=== PATIENT | male | born 1990 | race Two or more races ===

== ENCOUNTER 2022-01-04 15:55 | Emergency (ER) | payer SELFPAY ==
[2022-01-04 16:33] LABS: #Basophils 0.1 10x3/uL (0.0-0.2); #Monocytes 0.2 10x3/uL (0.0-1.1); %Basophils 1.6 % (0.0-2.0); %Eosinophils 0.2 % (0.0-6.0); %Lymphocytes 40.1 % (18.0-47.0); %Monocytes 4.2 % (0.0-10.0); %Neutrophils 53.7 % (40.0-75.0); Mean Corpuscular HGB CONC 35.4 g/dL (32.0-36.0); Mean Corpuscular Hemoglobin 33.3 pg (27.0-33.0); Mean Corpuscular Volume 94.2 fl (81.2-95.1); Mean Platelet Volume 9.8 fl (7.4-10.4); Platelet Count 191 10x3/uL (150-450); RBC Distribution Width 13.6 % (11.5-14.5); White Blood Cell (WBC) Count 5.7 10x3/uL (3.5-10.5)
[2022-01-04 16:45] LABS: Acetaminophen Less than 10.0 mcg/mL (10.0-30.0); Salicylate Less than 8.0 mg/dL (15.0-30.0)
[2022-01-04 16:46] LABS: ALT (SGPT) 48 U/L (8-55); AST (SGOT) 63 U/L (5-34); Albumin 4.4 g/dL (3.5-5.0); Alkaline Phosphatase 65 U/L (40-110); Anion Gap 22 mmol/L (10-20); BUN (Urea Nitrogen) 11 mg/dL (8.9-20.6); Bilirubin, Total 1.3 mg/dL (0.2-1.2); Calc. Creatinine Clearance 0 mL/min (70-130); Calcium 8.3 mg/dL (7.8-10.44); Carbon Dioxide 21 mmol/L (22-29); Chloride 106 mmol/L (98-107); Estimated GFR 113; Globulin 2.8 g/dL (2.4-3.5); Glucose 84 mg/dL (70-105); Potassium 4.5 mmol/L (3.5-5.1); Protein, Total 7.2 g/dL (6.0-8.3); Sodium 144 mmol/L (136-145)
[2022-01-04 16:48] LABS: Alcohol 426 mg/dL (Less than 10)
== END 2022-01-04 17:49 | disposition home or self-care (01) ==
LOC: CSHERS 15:55
DX: F10.129 Alcohol abuse with intoxication, unspecified (principal)
CPT/HCPCS: 80053; 80307; 85025; 99284

== ENCOUNTER 2022-01-08 12:04 | Inpatient (IN) | payer MEDICAID, SELFPAY ==
[2022-01-08 13:44] LABS: Bilirubin Neg (Negative); Blood, Urine Negative (Negative); Clarity Sl. Cloudy (Clear); Glucose, Urine (Dipstick) Normal (Negative); Ketone, Urine 50 mg/dL (Negative); Leukocyte Negative (Negative); Nitrite Negative (Negative); Protein, Urine (Dipstick) 100 mg/dl (Neg-Trace); Urobilinogen 12 mg/dL (Less than 2)
[2022-01-08] MEDS ORDERED: Lorazepam 2 MG/ML VIAL ONE ×2 (13:47→15:03)
[2022-01-08 13:52] LABS: Amphetamine Not Detected (NotDetected); Bacteria/HPF None Seen HPF (None Seen); Barbiturates Screen Not Detected (NotDetected); Benzodiazepine Screen Not Detected (NotDetected); Cocaine Metabolite Screen Not Detected (NotDetected); Methadone Not Detected (NotDetected); Methamphetamine Not Detected (NotDetected); Opiate Screen Not Detected (NotDetected); Oxycodone Screen Not Detected (NotDetected); Phencyclidine (PCP) Not Detected (NotDetected); RBC/HPF 0-3 HPF (0-3); Squamous Epithelial 0-3 HPF (0-3); THC/Cannabinoid Screen Not Detected (NotDetected); Tricyclic Screen Not Detected (NotDetected); WBC/HPF 0-3 HPF (0-3)
[2022-01-08 13:55] LABS: #Monocytes 0.2 10x3/uL (0.0-1.1); #Neutrophils 1.8 10x3/uL (1.5-8.4); %Basophils 1.1 % (0.0-2.0); %Eosinophils 0.5 % (0.0-6.0); %Monocytes 6.3 % (0.0-10.0); %Neutrophils 46.6 % (40.0-75.0); Hemoglobin 15.7 g/dL (13.5-17.5); Mean Corpuscular HGB CONC 36.1 g/dL (32.0-36.0); Mean Corpuscular Hemoglobin 33.3 pg (27.0-33.0); Mean Corpuscular Volume 92.2 fl (81.2-95.1); Mean Platelet Volume 11.2 fl (7.4-10.4); Platelet Count 96 10x3/uL (150-450); RBC Distribution Width 13.2 % (11.5-14.5); Red Blood Cell (RBC) Count 4.72 10x6/uL (4.32-5.72); White Blood Cell (WBC) Count 3.8 10x3/uL (3.5-10.5)
[2022-01-08 14:02] LABS: ALT (SGPT) 65 U/L (8-55); AST (SGOT) 102 U/L (5-34); Albumin 4.7 g/dL (3.5-5.0); Alkaline Phosphatase 74 U/L (40-110); Anion Gap 20 mmol/L (10-20); BUN (Urea Nitrogen) 7 mg/dL (8.9-20.6); Bilirubin, Total 3.7 mg/dL (0.2-1.2); Calc. Creatinine Clearance 0 mL/min (70-130); Calcium 9.3 mg/dL (7.8-10.44); Carbon Dioxide 22 mmol/L (22-29); Chloride 99 mmol/L (98-107); Estimated GFR 122; Globulin 3.1 g/dL (2.4-3.5); Glucose 100 mg/dL (70-105); Potassium 3.9 mmol/L (3.5-5.1); Protein, Total 7.8 g/dL (6.0-8.3); Sodium 137 mmol/L (136-145)
[2022-01-08 14:03] LABS: Acetaminophen Less than 10.0 mcg/mL (10.0-30.0); Alcohol 209 mg/dL (Less than 10); Salicylate Less than 8.0 mg/dL (15.0-30.0)
[2022-01-08 14:14] LABS: Platelet Morphology Comment Appears Decreased
[2022-01-08 14:16] LABS: Target Cells SLIGHT = 2-5 cells (100X) (0-1/hpf)
[2022-01-08] MEDS ORDERED: Multivitamins, Adult 10 ML, Thiamine HCl 100 MG, Folic Acid 1 MG in Dextrose 5 %-0.45 %... IV SCH (15:00)
[2022-01-08] MEDS ORDERED: Electrolyte Replacement Protocol 1 EACH FS SCH ×2 (16:00→17:00)
[2022-01-08] MEDS ORDERED: Lorazepam 1 MG TAB PO PRN (16:46)
[2022-01-08] MEDS ORDERED: Lorazepam 2 MG/ML VIAL IM PRN (16:46)
[2022-01-08] MEDS ORDERED: Ondansetron ODT 4 MG TAB PO PRN (16:46)
[2022-01-08] MEDS ORDERED: Lorazepam 1 MG TAB PO SCH (17:00)
[2022-01-08 17:19] LABS: Magnesium 1.8 mg/dL (1.6-2.6)
[2022-01-08 18:26] LABS: Syphilis Antibody Nonreactive (Nonreactive); Syphilis Antibody Index 0.03 S/CO (<1.00 Non-Reactive)
[2022-01-08] MEDS: Sodium Chloride 0.9% 1,000 ML IV SCH (21:00)
[2022-01-08 21:02] VITALS: BMI 22.0
[2022-01-08] MEDS: Lorazepam 1 MG TAB PO SCH (21:03)
[2022-01-08] MEDS: chlordiazePOXIDE HCl 5 MG CAP PO SCH (21:03)
[2022-01-08] MEDS: Thiamine HCl 200 MG/2 ML VIAL SLOW IVP SCH (21:03)
[2022-01-08] MEDS: Famotidine/PF 20 mg/2ml Vial SLOW IVP SCH (21:04)
[2022-01-08] MEDS: Acetaminophen 325 MG TAB PO PRN (21:33)
[2022-01-08] MEDS: Ondansetron PF 4 MG/2 ML Vial IVP PRN (21:33)
[2022-01-09] MEDS: Sodium Chloride 0.9% 1,000 ML IV SCH (00:16)
[2022-01-09] MEDS: Lorazepam 1 MG TAB PO SCH ×4 (03:03→21:50)
[2022-01-09 04:36] LABS: Anion Gap 14 mmol/L (10-20); BUN (Urea Nitrogen) 8 mg/dL (8.9-20.6); Calc. Creatinine Clearance 124 mL/min (70-130); Carbon Dioxide 25 mmol/L (22-29); Chloride 101 mmol/L (98-107); Estimated GFR 121; Potassium 3.7 mmol/L (3.5-5.1); Sodium 136 mmol/L (136-145)
[2022-01-09 04:37] LABS: Calcium 9.1 mg/dL (7.8-10.44); Glucose 86 mg/dL (70-105); Magnesium 1.6 mg/dL (1.6-2.6)
[2022-01-09 04:46] LABS: #Eosinphils 0.1 10x3/uL (0.0-0.5); #Monocytes 0.3 10x3/uL (0.0-1.1); #Neutrophils 1.8 10x3/uL (1.5-8.4); %Basophils 0.8 % (0.0-2.0); %Eosinophils 1.8 % (0.0-6.0); %Lymphocytes 42.2 % (18.0-47.0); %Monocytes 7.7 % (0.0-10.0); Hemoglobin 14.2 g/dL (13.5-17.5); Mean Corpuscular Hemoglobin 33.9 pg (27.0-33.0); Mean Platelet Volume 11.6 fl (7.4-10.4); Platelet Count 64 10x3/uL (150-450); Red Blood Cell (RBC) Count 4.19 10x6/uL (4.32-5.72); White Blood Cell (WBC) Count 3.9 10x3/uL (3.5-10.5)
[2022-01-09 05:16] LABS: Platelet Morphology Comment Appears Decreased
[2022-01-09 05:17] LABS: RBC Morphology Normal
[2022-01-09] MEDS ORDERED: Magnesium 2 GM/50 ML(in water) 2 GM in Premix Bag 1 BAG IVPB SCH (08:00)
[2022-01-09 09:28] LABS: ALT (SGPT) 51 U/L (8-55); AST (SGOT) 78 U/L (5-34); Alkaline Phosphatase 62 U/L (40-110); Bilirubin, Direct 0.7 mg/dL (0.1-0.3); Protein, Total 6.7 g/dL (6.0-8.3)
[2022-01-09] MEDS: Multivit, Therapeutic 1 TAB PO SCH (09:58)
[2022-01-09] MEDS: Famotidine/PF 20 mg/2ml Vial SLOW IVP SCH ×2 (09:58→21:50)
[2022-01-09] MEDS: Folic Acid 1 MG TAB PO SCH (09:59)
[2022-01-09] MEDS: chlordiazePOXIDE HCl 5 MG CAP PO SCH ×3 (10:07→21:50)
[2022-01-09] MEDS: Acetaminophen 325 MG TAB PO PRN (10:15)
[2022-01-09 13:39] LABS: ALT (SGPT) 49 U/L (8-55); AST (SGOT) 66 U/L (5-34); Albumin 4.2 g/dL (3.5-5.0); Alkaline Phosphatase 67 U/L (40-110); Bilirubin, Direct 0.7 mg/dL (0.1-0.3); Bilirubin, Total 5.7 mg/dL (0.2-1.2); Protein, Total 6.9 g/dL (6.0-8.3)
[2022-01-09] MEDS: Multivitamins, Adult 10 ML, Folic Acid 1 MG, Thiamine HCl 100 MG in Dextrose 5 %-0.45 %... IV SCH (15:33)
[2022-01-09] MEDS ORDERED: Lorazepam 1 MG TAB PO PRN (16:46)
[2022-01-09] MEDS: Thiamine HCl 200 MG/2 ML VIAL SLOW IVP SCH (17:32)
[2022-01-09] MEDS: traZODone HCl 50 MG TAB PO PRN (21:50)
[2022-01-10] MEDS: Lorazepam 1 MG TAB PO SCH ×4 (04:23→22:20)
[2022-01-10 04:33] LABS: ALT (SGPT) 37 U/L (8-55); AST (SGOT) 44 U/L (5-34); Alkaline Phosphatase 60 U/L (40-110); Anion Gap 12 mmol/L (10-20); BUN (Urea Nitrogen) 9 mg/dL (8.9-20.6); Bilirubin, Total 3.1 mg/dL (0.2-1.2); Calc. Creatinine Clearance 138 mL/min (70-130); Calcium 9.3 mg/dL (7.8-10.44); Carbon Dioxide 21 mmol/L (22-29); Chloride 105 mmol/L (98-107); Estimated GFR 125; Globulin 2.6 g/dL (2.4-3.5); Glucose 102 mg/dL (70-105); Potassium 3.4 mmol/L (3.5-5.1); Protein, Total 6.6 g/dL (6.0-8.3); Sodium 135 mmol/L (136-145)
[2022-01-10 04:49] LABS: #Eosinphils 0.1 10x3/uL (0.0-0.5); #Monocytes 0.3 10x3/uL (0.0-1.1); #Neutrophils 2.3 10x3/uL (1.5-8.4); %Basophils 0.4 % (0.0-2.0); %Eosinophils 2.6 % (0.0-6.0); %Lymphocytes 42.3 % (18.0-47.0); %Monocytes 5.4 % (0.0-10.0); %Neutrophils 49.1 % (40.0-75.0); Hemoglobin 14.3 g/dL (13.5-17.5); Mean Corpuscular Hemoglobin 33.9 pg (27.0-33.0); Mean Corpuscular Volume 94.1 fl (81.2-95.1); Mean Platelet Volume 12.3 fl (7.4-10.4); Platelet Count 55 10x3/uL (150-450); RBC Distribution Width 12.4 % (11.5-14.5); Red Blood Cell (RBC) Count 4.22 10x6/uL (4.32-5.72); White Blood Cell (WBC) Count 4.6 10x3/uL (3.5-10.5)
[2022-01-10] MEDS ORDERED: Potassium Chloride 20 MEQ TAB PO SCH (06:00)
[2022-01-10] MEDS: Ondansetron PF 4 MG/2 ML Vial IVP PRN ×3 (08:29→22:21)
[2022-01-10] MEDS: Famotidine/PF 20 mg/2ml Vial SLOW IVP SCH ×2 (08:31→22:21)
[2022-01-10] MEDS: Multivit, Therapeutic 1 TAB PO SCH (08:33)
[2022-01-10] MEDS: chlordiazePOXIDE HCl 5 MG CAP PO SCH ×3 (08:33→22:20)
[2022-01-10] MEDS: Folic Acid 1 MG TAB PO SCH (08:33)
[2022-01-10] MEDS: Acetaminophen 325 MG TAB PO PRN (08:37)
[2022-01-10] MEDS: Multivitamins, Adult 10 ML, Folic Acid 1 MG, Thiamine HCl 100 MG in Dextrose 5 %-0.45 %... IV SCH (15:36)
[2022-01-10] MEDS: Thiamine HCl 200 MG/2 ML VIAL SLOW IVP SCH (16:33)
[2022-01-10] MEDS ORDERED: Lorazepam 1 MG TAB PO PRN (16:46)
[2022-01-10] MEDS ORDERED: Lorazepam 0.5 MG TAB PO SCH (17:00)
[2022-01-10] MEDS: traZODone HCl 50 MG TAB PO PRN (22:20)
[2022-01-11] MEDS: Lorazepam 0.5 MG TAB PO SCH ×4 (03:51→20:46)
[2022-01-11 05:31] LABS: ALT (SGPT) 36 U/L (8-55); AST (SGOT) 42 U/L (5-34); Albumin 4.1 g/dL (3.5-5.0); Alkaline Phosphatase 67 U/L (40-110); Anion Gap 14 mmol/L (10-20); BUN (Urea Nitrogen) 12 mg/dL (8.9-20.6); Bilirubin, Total 1.3 mg/dL (0.2-1.2); Calc. Creatinine Clearance 124 mL/min (70-130); Calcium 9.6 mg/dL (7.8-10.44); Carbon Dioxide 22 mmol/L (22-29); Chloride 108 mmol/L (98-107); Estimated GFR 121; Globulin 2.7 g/dL (2.4-3.5); Glucose 103 mg/dL (70-105); Potassium 3.7 mmol/L (3.5-5.1); Protein, Total 6.8 g/dL (6.0-8.3); Sodium 140 mmol/L (136-145)
[2022-01-11 06:52] LABS: #Eosinphils 0.1 10x3/uL (0.0-0.5); #Monocytes 0.4 10x3/uL (0.0-1.1); #Neutrophils 2.8 10x3/uL (1.5-8.4); %Basophils 0.4 % (0.0-2.0); %Eosinophils 2.4 % (0.0-6.0); %Lymphocytes 33.7 % (18.0-47.0); %Monocytes 7.2 % (0.0-10.0); %Neutrophils 56.1 % (40.0-75.0); Hemoglobin 13.8 g/dL (13.5-17.5); Mean Corpuscular HGB CONC 35.8 g/dL (32.0-36.0); Mean Corpuscular Hemoglobin 33.6 pg (27.0-33.0); Mean Corpuscular Volume 93.9 fl (81.2-95.1); Mean Platelet Volume 11.9 fl (7.4-10.4); Platelet Count 57 10x3/uL (150-450); RBC Distribution Width 12.6 % (11.5-14.5); Red Blood Cell (RBC) Count 4.11 10x6/uL (4.32-5.72)
[2022-01-11 08:03] LABS: Platelet Morphology Comment Appears Decreased
[2022-01-11 08:05] LABS: RBC Morphology Normal
[2022-01-11] MEDS: Folic Acid 1 MG TAB PO SCH (09:48)
[2022-01-11] MEDS: Multivit, Therapeutic 1 TAB PO SCH (09:48)
[2022-01-11] MEDS: chlordiazePOXIDE HCl 5 MG CAP PO SCH ×3 (09:49→20:46)
[2022-01-11] MEDS: Famotidine/PF 20 mg/2ml Vial SLOW IVP SCH (11:21)
[2022-01-11] MEDS: Thiamine 100 MG TAB PO SCH (15:32)
[2022-01-11] MEDS ORDERED: Lorazepam 0.5 MG TAB PO PRN (16:46)
[2022-01-11] MEDS: Pantoprazole 40 MG VIAL IVP SCH (20:46)
[2022-01-12] MEDS: Lorazepam 0.5 MG TAB PO SCH ×2 (03:45→08:38)
[2022-01-12 04:15] LABS: Anion Gap 15 mmol/L (10-20); BUN (Urea Nitrogen) 11 mg/dL (8.9-20.6); Calc. Creatinine Clearance 135 mL/min (70-130); Calcium 9.6 mg/dL (7.8-10.44); Carbon Dioxide 19 mmol/L (22-29); Chloride 105 mmol/L (98-107); Estimated GFR 124; Glucose 109 mg/dL (70-105); Potassium 3.9 mmol/L (3.5-5.1); Sodium 135 mmol/L (136-145)
[2022-01-12 04:37] LABS: #Eosinphils 0.1 10x3/uL (0.0-0.5); #Monocytes 0.5 10x3/uL (0.0-1.1); #Neutrophils 4.2 10x3/uL (1.5-8.4); %Basophils 0.3 % (0.0-2.0); %Eosinophils 1.8 % (0.0-6.0); %Lymphocytes 27.8 % (18.0-47.0); %Monocytes 7.1 % (0.0-10.0); %Neutrophils 62.7 % (40.0-75.0); Hemoglobin 14.3 g/dL (13.5-17.5); Mean Corpuscular HGB CONC 35.9 g/dL (32.0-36.0); Mean Corpuscular Hemoglobin 33.5 pg (27.0-33.0); Mean Corpuscular Volume 93.2 fl (81.2-95.1); Mean Platelet Volume 11.3 fl (7.4-10.4); Platelet Count 66 10x3/uL (150-450); RBC Distribution Width 12.4 % (11.5-14.5); Red Blood Cell (RBC) Count 4.27 10x6/uL (4.32-5.72); White Blood Cell (WBC) Count 6.6 10x3/uL (3.5-10.5)
[2022-01-12] MEDS: Pantoprazole 40 MG VIAL IVP SCH (08:38)
[2022-01-12] MEDS: chlordiazePOXIDE HCl 5 MG CAP PO SCH (08:38)
[2022-01-12] MEDS: Folic Acid 1 MG TAB PO SCH (08:38)
[2022-01-12] MEDS: Multivit, Therapeutic 1 TAB PO SCH (08:38)
[2022-01-12] MEDS: Thiamine 100 MG TAB PO SCH (08:38)
[2022-01-13] MEDS ORDERED: Escitalopram Oxalate 20 mg Tablet PO SCH (09:00)
[2022-01-14 10:57] VITALS: BP 136/75; TEMP 98.5
== END 2022-01-12 10:27 | disposition home or self-care (01) | DRG 897 ==
LOC: CSHERS 12:04 → CSHTELE 19:08 → OBSVTOIN 01-10 12:54
PROVIDERS: ADMIT Internal Medicine; ATTEND Family Medicine
DX: F10.239 Alcohol dependence with withdrawal, unspecified (principal); F17.210 Nicotine dependence, cigarettes, uncomplicated; D69.6 Thrombocytopenia, unspecified; Z20.822 Contact with and (suspected) exposure to COVID-19; Z79.899 Other long term (current) drug therapy
CPT/HCPCS: 36415; 76700; 80048; 80053; 80076; 80306; 80307; 81003; 81015; 82248; 83735; 84100; 85025; 86780; 93005; 94760; 96374; 96375; 96376; C9113; G0378; J2060; J2405; J3411; J3475; J7042; J7050; S0028; U0003; U0005